=== PATIENT | female | born 1950 | race Caucasian/White ===

== ENCOUNTER 2016-10-16 17:40 | Observation (INO) | payer MEDICAID ==
[~2016-10-16] VITALS: Ht 134.6 cm; Wt 52.0 kg
[~2016-10-16 17:40] MED LIST: ASPI81TA82 PO; ATOR20TA PO; CHOL50006 PO; FENO1TAB76 PO; FOSA70TA PO; GABA800T PO; GLUC10TA3 PO; HUMU70IN; METF850T PO; ONDA1TAB16 PO; PERC5TAB12 PO; PRIN5TAB PO
[2016-10-16 17:42] VITALS: BP 148/89; PULSE 112; RESP 21; TEMP 98.1; O2SAT 97
[2016-10-16] MEDS ORDERED: ONDANSETRON HCL 4 MG/2 ML VIAL IVP ONE (18:15)
[2016-10-16] MEDS ORDERED: HYDROmorphone HCL PF 1 MG/ML VIAL IVS ONE (18:15)
[2016-10-16] MEDS ORDERED: SODIUM CHLORIDE 0.9% FLUSH 10 ML FLUSH IV FLUSH PRN (18:15)
[2016-10-16] MEDS ORDERED: SODIUM CHLORID 0.9% 500 ML INJ 500 ML IV ONE (18:15)
[2016-10-16 18:16] VITALS: BP 165/81; PULSE 96; RESP 18; O2SAT 97
--- NOTE | 2016-10-16 18:18 | PD ---
HPI Chief Complaint: Abdominal Pain Time Seen by Provider: 18:14 Travel History International Travel<30 days: No Contact w/Intl Traveler<30days: No Traveled to known affect area: No History of Present Illness HPI 65-year-old female patient with history of pancreatitis, presents to the ER today with 2 days history of left upper quadrant abdominal pains which she currently rates it a 10 out of 10 with nausea and vomiting. She denies any fevers, diarrhea, or any other symptoms. She states it feels like her previous episode of pancreatitis. She states it radiates to the back. Modifying Factors: None Associated Signs & Symptoms: Left upper quadrant abdominal pain with nausea and vomiting Risk Factors: Pancreatitis, status post cholecystectomy PFS Past Medical History Cardiovascular Problems: Yes High Cholesterol: Yes Diabetes: Yes Gastrointestinal Disorders: Yes (GASTRITIS / PANCREATITIS) Past Surgical History Appendectomy: Yes Cholecystectomy: Yes Hysterectomy: Yes Social History Alcohol Use: No Tobacco Use: No Substance Use: No Allergies-Medications (Allergen,Severity, Reaction): Coded Allergies: ibuprofen (Unverified Allergy, Unknown, 10/16/16) Reported Meds & Prescriptions Reported Meds & Active Scripts Active Reported Aspirin Adult Low Strength (Aspirin) 81 Mg Tabdr 81 Mg PO DAILY Omeprazole 20 Mg Tab 20 Mg PO DAILY [place]-3 ([place]-3 Fatty Acids) 1,000 Mg Capsule 1,000 Mg PO QID Glipizide 10 Mg Tab 10 Mg PO DAILY Take 30 minutes before a meal Invokamet (Canagliflozin-Metformin) 50-1,000 Mg Tab 1 Tab PO BID Take with meals. Avoid ethanol. Gemfibrozil 600 Mg Tab 600 Mg PO BID Take 30 minutes prior to breakfast and dinner. Lipitor (Atorvastatin Calcium) 80 Mg Tab 80 Mg PO HS Fosamax (Alendronate Sodium) 70 Mg Tab 70 Mg PO Q7D Ergocalciferol 50,000 Unit Cap 50,000 Units PO Q7D Gabapentin 800 Mg Tab 800 Mg PO BID Humalog Mix 75-25 Kwikpen Pen Inj (Insulin Lispro Protamine-Lispro 75-25 Inj) 300 unit/3 ML Pen 44 Units SQ BEFORE DINNER Humalog Mix 75-25 Kwikpen Pen Inj (Insulin Lispro Protamine-Lispro 75-25 Inj) 300 unit/3 ML Pen 25 Units SQ BEFORE BREAKFAST Meclizine (Meclizine HCl) 25 Mg Tab 25 Mg PO BID Amlodipine (Amlodipine Besylate) 10 Mg Tab 10 Mg PO DAILY Review of Systems Except as stated in HPI: all other systems reviewed are Neg Physical Exam Narrative GENERAL: Well-developed elderly female patient currently in mild distress. Awake and oriented 3. SKIN: Focused skin assessment warm/dry. HEAD: Atraumatic. Normocephalic. EYES: Pupils equal and round. No scleral icterus. No injection or drainage. ENT: No nasal bleeding or discharge. Mucous membranes pink and moist. NECK: Trachea midline. No JVD. CARDIOVASCULAR: Regular rate and rhythm. No murmur appreciated. RESPIRATORY: No accessory muscle use. Clear to auscultation. Breath sounds equal bilaterally. GASTROINTESTINAL: Abdomen soft, upper abdominal tenderness on palpation without guarding or rebound, nondistended. Hepatic and splenic margins not palpable. MUSCULOSKELETAL: No obvious deformities. No clubbing. No cyanosis. No edema. NEUROLOGICAL: Awake and alert. No obvious cranial nerve deficits. Motor grossly within normal limits. Normal speech. PSYCHIATRIC: Appropriate mood and affect; insight and judgment normal. Data Data Last Documented VS Vital Signs Date Time Temp Pulse Resp B/P (MAP) Pulse Ox O2 Delivery O2 Flow Rate FiO2 10/16/16 18:16 96 18 165/81 (109) 97 Room Air 10/16/16 17:42 98.1 Orders Orders Complete Blood Count With Diff (10/16/16 18:14) Comprehensive Metabolic Panel (10/16/16 18:14) Lipase (10/16/16 18:14) Ct Abd/Pel W Iv Contrast(Rout) (10/16/16 18:14) Iv Access Insert/Monitor (10/16/16 18:14) Ecg Monitoring (10/16/16 18:14) Oximetry (10/16/16 18:14) Ondansetron Inj (Zofran Inj) (10/16/16 18:15) Sodium Chloride 0.9% Flush (Ns Flush) (10/16/16 18:15) Electrocardiogram (10/16/16 18:14) Hydromorphone Pf Inj (Dilaudid Pf Inj) (10/16/16 18:15) Sodium Chlorid 0.9% 500 Ml Inj (Ns 500 M (10/16/16 18:15) Labs Laboratory Tests Test 10/16/16 18:20 [facility] Medical Decision Making Medical Screen Exam Complete: Yes Emergency Medical Condition: Yes Medical Record Reviewed: Yes Differential Diagnosis Upper abdominal pain, nausea, vomiting: gastritis versus pancreatitis versus gastroenteritis Narrative Course IV fluids, Zofran was given in the ER. Lab work and CAT scan was initiated. Physician Communication Physician Communication Case is signed out at [address] Peacock, please see Dr. Peacock for disposition. Awaiting lab work and CAT scan. Diagnosis Primary Impression: Abdominal pain Condition: Stable Nate Worrell MD Oct 16, 2016 18:18
[2016-10-16] MEDS ORDERED: GLIP10TA6 PO (18:53)
[2016-10-16] MEDS ORDERED: ERGO1CAP30 PO (18:53)
[2016-10-16] MEDS ORDERED: CANA1TAB2 PO (18:53)
[2016-10-16] MEDS ORDERED: HUMA75IN SQ ×2 (18:53)
[2016-10-16] MEDS ORDERED: MECL-62 PO (18:53)
[2016-10-16] MEDS ORDERED: ASPI1TAB91 PO (18:53)
[2016-10-16] MEDS ORDERED: GEMF600T PO (18:53)
[2016-10-16] MEDS ORDERED: AMLO10TA2 PO (18:53)
[2016-10-16] MEDS ORDERED: OMEP20TA PO (18:53)
[2016-10-16] MEDS ORDERED: GABA800T PO (18:53)
[2016-10-16] MEDS ORDERED: FOSA70TA PO (18:53)
[2016-10-16] MEDS ORDERED: OMEG10004 PO (18:53)
[2016-10-16] MEDS ORDERED: LIPI80TA PO (18:53)
[2016-10-16 19:09] LABS: AUTOMATED NEUTROPHIL # 8.1 TH/MM3 (1.8-7.7); BASOPHIL # 0.1 TH/MM3 (0-0.2); EOSINOPHIL % 0.1 % (0.0-4.0); LYMPH % 4.9 % (9.0-44.0); LYMPHOCYTE # 0.5 TH/MM3 (1.0-4.8); MEAN CELL VOLUME 80.4 FL (80.0-100.0); MONO % 8.2 % (0.0-8.0); NEUT % 85.8 % (16.0-70.0); PLATELET COUNT 197 TH/MM3 (150-450); RED CELL DISTRIBUTION WIDTH 15.4 % (11.6-17.2); WHITE BLOOD COUNT 9.4 TH/MM3 (4.0-11.0)
--- NOTE | 2016-10-16 19:20 | PD ---
Physical Exam Narrative General: The patient is a well-developed well-nourished female in no acute distress. Head and Neck exam: Head is normocephalic atraumatic. Eyes: EOMI, pupils are equal round and reactive to light. Nose: Midline septum with pink mucous membranes Mouth: Dentition unremarkable. Moist mucus membranes. Posterior oropharynx is not erythematous. No tonsillar hypertrophy. Uvula midline. Airway patent. Neck: No palpable lymphadenopathy. No nuchal rigidity. No thyromegaly. Cardiovascular: Regular rate and rhythm without murmurs, gallops, or rubs. Lungs: Clear to auscultation bilaterally. No wheezes, rhonchi, or rales. Abdomen: Soft, with midepigastric abdominal tenderness on palpation. No other tenderness on palpation of the other quadrants of the abdomen. No guarding, rebound, or rigidity. Negative Franco's sign. No tenderness on palpation of McBurney's point. Extremities: No clubbing, cyanosis, or edema. 2+ pulses in all 4 extremities. No calf tenderness on palpation. Back: No spinous process tenderness to palpation. No costovertebral angle tenderness to palpation. Neurologic Exam: Cranial nerves 2-12 were intact on exam. Strength is 5/5 in all 4 extremities. No sensory deficits noted. No dysdiadochokinesis. Good finger to nose and Heel to peñaloza bilaterally. Skin Exam: No rash noted. Intact skin that is warm and dry. Data Data Last Documented VS Vital Signs Date Time Temp Pulse Resp B/P (MAP) Pulse Ox O2 Delivery O2 Flow Rate FiO2 10/16/16 20:36 95 16 148/74 (98) 96 Nasal Cannula 2.00 10/16/16 17:42 98.1 Orders Orders Complete Blood Count With Diff (10/16/16 18:14) Comprehensive Metabolic Panel (10/16/16 18:14) Lipase (10/16/16 18:14) Ct Abd/Pel W Iv Contrast(Rout) (10/16/16 18:14) Iv Access Insert/Monitor (10/16/16 18:14) Ecg Monitoring (10/16/16 18:14) Oximetry (10/16/16 18:14) Ondansetron Inj (Zofran Inj) (10/16/16 18:15) Sodium Chloride 0.9% Flush (Ns Flush) (10/16/16 18:15) Electrocardiogram (10/16/16 18:14) Hydromorphone Pf Inj (Dilaudid Pf Inj) (10/16/16 18:15) Sodium Chlorid 0.9% 500 Ml Inj (Ns 500 M (10/16/16 18:15) Urinalysis - C+S If Indicated (10/16/16 20:46) Iohexol 350 Inj (Omnipaque 350 Inj) (10/16/16 21:11) Beta Hydroxybutyrate (Acetone) (10/16/16 21:49) Lactic Acid Sepsis Protocol (10/16/16 21:49) Sodium Chlor 0.9% 1000 Ml Inj (Ns 1000 M (10/16/16 22:00) Admit Order (Ed Use Only) (10/16/16 22:06) Labs Laboratory Tests Test 10/16/16 18:20 10/16/16 22:01 10/16/16 22:05 White Blood Count 9.4 TH/MM3 Red Blood Count 4.50 MIL/MM3 Hemoglobin 12.4 GM/DL Hematocrit 37.0 % Mean Corpuscular Volume 80.4 FL Mean Corpuscular Hemoglobin 27.2 PG Mean Corpuscular Hemoglobin Concent 33.5 % Red Cell Distribution Width 15.4 % Platelet Count 197 TH/MM3 Mean Platelet Volume 8.6 FL Neutrophils (%) (Auto) 85.8 % Lymphocytes (%) (Auto) 4.9 % Monocytes (%) (Auto) 8.2 % Eosinophils (%) (Auto) 0.1 % Basophils (%) (Auto) 1.0 % Neutrophils # (Auto) 8.1 TH/MM3 Lymphocytes # (Auto) 0.5 TH/MM3 Monocytes # (Auto) 0.8 TH/MM3 Eosinophils # (Auto) 0.0 TH/MM3 Basophils # (Auto) 0.1 TH/MM3 CBC Comment DIFF FINAL Differential Comment Hematology Comments Blood Urea Nitrogen 8 MG/DL 9 MG/DL Creatinine 0.60 MG/DL 0.54 MG/DL Random Glucose 263 MG/DL 222 MG/DL Total Protein 7.6 GM/DL Albumin 3.3 GM/DL Calcium Level 7.5 MG/DL 8.1 MG/DL Alkaline Phosphatase 90 U/L Aspartate Amino Transf (AST/SGOT) 58 U/L Alanine Aminotransferase (ALT/SGPT) 52 U/L Total Bilirubin 1.2 MG/DL Sodium Level 131 MEQ/L 134 MEQ/L Potassium Level 4.3 MEQ/L 4.4 MEQ/L Chloride Level 96 MEQ/L 100 MEQ/L Carbon Dioxide Level 11.0 MEQ/L 13.8 MEQ/L Anion Gap 24 MEQ/L 20 MEQ/L Estimat Glomerular Filtration Rate 101 ML/MIN 114 ML/MIN Lipase 170 U/L Lactic Acid Level LESS THAN 0.1 mmol/L B-Hydroxybutyrate 0.56 MMOL/L Urine Color LIGHT-YELLOW Urine Turbidity CLEAR Urine pH 6.5 Urine Specific [place] GREATER THAN 1.050 Urine Protein TRACE mg/dL Urine Glucose (UA) 1000 mg/dL Urine Ketones 80 mg/dL Urine Occult Blood NEG Urine Nitrite NEG Urine Bilirubin NEG Urine Urobilinogen LESS THAN 2.0 MG/DL Urine Leukocyte Esterase NEG Urine RBC 1 /hpf Urine WBC 3 /hpf Urine Squamous Epithelial Cells 1 /hpf Urine Mucus FEW /lpf Microscopic Urinalysis Comment CULT NOT INDICATED MDM Medical Record Reviewed: Yes Supervised Visit with LEO: No Interpretation(s) Last Impressions Abdomen/Pelvis CT 10/16/161813 Signed Impressions: Service Date/Time: Sunday, October 16, 2016 20:43 - CONCLUSION: 1. Mild fat stranding around the pancreas most characteristic of mild pancreatitis. Previous cholecystectomy without ductal dilatation. 2. Numerous nonobstructing renal calculi. 3. Mild fatty liver. Leodan Lee MD Narrative Course During the course of the patients emergency department visit, the patients history, examination, and differential diagnosis were reviewed with the patient. The patient had IV access obtained and blood work sent for analysis. The patient was placed on a cardiac tech with oximetry and blood pressure monitoring. An ECG was done on arrival. The patient's ECG shows a sinus rhythm with a heart rate of 95, marked left axis deviation, right bundle branch block is noted. No acute ST segment elevation. T waves are inverted in V1, V2. The patient was initially provided hydromorphone for pain, Zofran for nausea, normal saline IV fluids. The patients laboratory studies were reviewed and remarkable for A CBC that shows a white count of 9.4, hemoglobin 12.4, platelets 197 with 85.8 neutrophils , lymphocytes 4.9, monocytes 8.2. CMP is remarkable for a sodium of 131, chloride 96, CO2 11, anion gap 24, BUN 8, creatinine 0.60, glucose 263, calcium 7.5, total bilirubin 1.2 AST 58., Albumin 3.3, lipase 170 as the patient was noted to be acidotic with an anion gap and ABG was ordered. The patient's pH is 7.35 on VBG, bicarbonate 25.6. Urinalysis shows 1000 glucose, ketones 80, beta hydroxybutyrate 0.56 Radiology studies were reviewed and remarkable for a CT scan of the abdomen and pelvis that shows mild fat stranding around the pancreas most consistent with a mild pancreatitis. The patients results were discussed with the patient, including the plan of care. I explained that further testing and/ or monitoring is indicated based on the patients history, examination, and/ or laboratory findings. Therefore, I recommended admission for additional evaluation. The patient expressed understanding and was agreeable with this plan. The patient was admitted to the hospital in stable condition and [facility] Physician Communication Physician Communication The patient's case was discussed with Dr. Bates who did agree to admit the patient for further evaluation and treatment at this time. Diagnosis Primary Impression: Abdominal pain Qualified Codes: R10.13 - Epigastric pain Additional Impressions: Pancreatitis Qualified Codes: K85.90 - Acute pancreatitis without necrosis or infection, unspecified Acidosis, metabolic Admitting Information Admitting Physician Requests: Admit Gisselle Peacock MD Oct 16, 2016 19:20
[2016-10-16 19:38] LABS: HEMO FLAGS DIFF FINAL; MEAN CORPUSCULAR HEMOGLOBIN 27.2 PG (27.0-34.0); MEAN CORPUSCULAR HGB CONC 33.5 % (32.0-36.0)
[2016-10-16 19:56] LABS: CHLORIDE 96 MEQ/L (98-107); GLOMERULAR FILTRATION RATE 101 ML/MIN (>89); SODIUM (NA) 131 MEQ/L (136-145)
[2016-10-16 19:57] LABS: POTASSIUM 4.3 MEQ/L (3.5-5.1)
[2016-10-16 19:59] LABS: ALKALINE PHOSPHATASE 90 U/L (45-117); TOTAL BILIRUBIN ADULT 1.2 MG/DL (0.2-1.0)
[2016-10-16 20:36] VITALS: BP 148/74; PULSE 95; RESP 16; O2SAT 96
[2016-10-16 20:41] LABS: ANION GAP 24 MEQ/L (5-15)
[2016-10-16 20:42] LABS: BLOOD UREA NITROGEN 8 MG/DL (7-18)
[2016-10-16 20:51] LABS: ALT (GPT) 52 U/L (10-53); AST (GOT) 58 U/L (15-37)
[2016-10-16] MEDS ORDERED: IOHEXOL 350 MG/ML 10 ML VIAL (for RAD DIAG) IVCONTRAST ONE (21:11)
--- NOTE | 2016-10-16 21:34 | RADRPT ---
EXAM DATE/TIME: 10/16/2016 20:43 [facility] COMPARISON: CT ABDOMEN & PELVIS W CONTRAST, July 10, 2015, 9:12. INDICATIONS : Bilateral upper quadrant pain with nausea and vomiting. IV CONTRAST: 80 cc Omnipaque 350 (iohexol) IV ORAL CONTRAST: No oral contrast ingested. RADIATION DOSE: 9.96 CTDIvol (mGy) MEDICAL HISTORY : Hypertension. Diabetes. SURGICAL HISTORY : Cholecystectomy. Hysterectomy.Appendectomy. ENCOUNTER: Initial ACUITY: 1 day PAIN SCALE: 10/10 LOCATION: Bilateral upper quadrant TECHNIQUE: Volumetric scanning of the abdomen and pelvis was performed. Using automated exposure control and ad justment of the mA and/or kV according to patient size, radiation dose was kept as low as reasonably achievable to obtain optimal diagnostic quality images. DICOM format image data is available electro nically for review and comparison. FINDINGS: Lung bases demonstrate minimal dependent atelectasis. No acute findings in the liver, spleen, adrenal s. Mild stranding of fat around the pancreas. Numerous tiny bilateral renal calculi similar in appear ance to June 2015. No hydronephrosis or evidence for obstructive uropathy. Previous cholecystectomy. No bowel obstruction. No free air or free fluid. Mild constipation. Bladder is mildly distended. CONCLUSION: 1. Mild fat stranding around the pancreas most characteristic of mild pancreatitis. Previous cholecys tectomy without ductal dilatation. 2. Numerous nonobstructing renal calculi. 3. Mild fatty liver. Leodan Lee MD on October 16, 2016 at 21:26 Board Certified Radiologist. This report was verified electronically.
[2016-10-16] MEDS ORDERED: SODIUM CHLOR 0.9% 1000 ML INJ 1,000 ML IV ONE (22:00)
[2016-10-16 22:09] VITALS: BP 160/79; PULSE 99; RESP 18; O2SAT 99
[2016-10-16 22:10] VITALS: TEMP 99
[2016-10-16] MEDS ORDERED: NALOXONE HCL 0.4 MG/ML AMP IV PRN (22:30)
[2016-10-16 22:45] LABS: BLOOD, URINE NEG (NEG); GLUCOSE,URINE 1000 mg/dL (NEG); KETONE, URINE 80 mg/dL (NEG); MUCUS URINE FEW /lpf (OCC); NITRITE,URINE NEG (NEG); PH, URINE 6.5 (5.0-8.5); SQUAMOUS EPITHELIAL CELL URINE 1 /hpf (0-5); URINE COLOR LIGHT-YELLOW (YELLW/STRAW)
[2016-10-16 22:46] LABS: COMMENT (UR) CULT NOT INDICATED; CULTURE IF INDICATED CULT NOT INDICATED
[2016-10-16 22:47] LABS: BLOOD GAS VENOUS BASE EXCESS 0.8 mmol/L (-2-2); BLOOD GAS VENOUS HCO3 26 mmol/L (22-26); BLOOD GAS VENOUS O2 CONTENT 9.9 Vol % (9.0-17.0); BLOOD GAS VENOUS O2 HGB SAT 59 % (70-76); BLOOD GAS VENOUS PCO2 47 mmHg (44-48); BLOOD GAS VENOUS PO2 34 mmHg (35-40); BLOOD GAS VENOUS pH 7.36 (7.360-7.400); CRITICAL VALUE NO; DRAW SITE IV; LITER FLOW 2 L/M; OXYGEN DEVICE NASAL CANNULA; STAT YES; TEMP CORR TO 98.6
--- NOTE | 2016-10-16 23:28 | HHI.HP ---
[facility] Unknown Admission Diagnosis Dehydration with acidosis, pancreatitis Diagnoses: (1) Pancreatitis Chief Complaint: Severe abdominal pain and back pain Travel History International Travel<30 Days: No Contact w/Intl Traveler <30 Da: No Traveled to Known Affected Are: No History of Present Illness Written by Berta Flores, acting as scribe for Dr. Bates on 10/16/16 at 23:25. The patient reports severe abdominal pain and her back accompanied by nausea with 3 episodes of vomiting. Denies black or red vomiting. Denies diarrhea. Denies diaphoresis. Denies fever, hematuria, or dysuria. Pain is in the left upper quadrant but patient is also complaining of suprapubic pain. Patient reports a prior history of pancreatitis 3. States that she was in ICU for all of these. This is her fourth time. She states that she has extremely high triglycerides. In the range of 10,000. Denies any history of gallstones or alcoholism. Denies fever. Review of Systems Except as stated in HPI: all other systems reviewed are Neg Past Family Social History Past Medical History Pancreatitis (3 prior episodes) - required ICU admission Hypertriglyceridemia Hypertension Diabetes Mellitus, type 2 Arthritis ?CAD s/p stents? Liver inflammation Vertigo Denies CHF, atrial fibrillation, COPD, asthma, kidney problems, DVT, PE, CVA, seizures, thyroid problems, or cancers . Past Surgical History Cholecystectomy Appendectomy Hysterectomy Angiogram . Reported Medications Reported Meds & Active Scripts Active Reported Aspirin Adult Low Strength (Aspirin) 81 Mg Tabdr 81 Mg PO DAILY Omeprazole 20 Mg Tab 20 Mg PO DAILY Clayton-3 (Clayton-3 Fatty Acids) 1,000 Mg Capsule 1,000 Mg PO QID Glipizide 10 Mg Tab 10 Mg PO DAILY Take 30 minutes before a meal Invokamet (Canagliflozin-Metformin) 50-1,000 Mg Tab 1 Tab PO BID Take with meals. Avoid ethanol. Gemfibrozil 600 Mg Tab 600 Mg PO BID Take 30 minutes prior to breakfast and dinner. Lipitor (Atorvastatin Calcium) 80 Mg Tab 80 Mg PO HS Fosamax (Alendronate Sodium) 70 Mg Tab 70 Mg PO Q7D Ergocalciferol 50,000 Unit Cap 50,000 Units PO Q7D Gabapentin 800 Mg Tab 800 Mg PO BID Humalog Mix 75-25 Kwikpen Pen Inj (Insulin Lispro Protamine-Lispro 75-25 Inj) 300 unit/3 ML Pen 44 Units SQ BEFORE DINNER Humalog Mix 75-25 Kwikpen Pen Inj (Insulin Lispro Protamine-Lispro 75-25 Inj) 300 unit/3 ML Pen 25 Units SQ BEFORE BREAKFAST Meclizine (Meclizine HCl) 25 Mg Tab 25 Mg PO BID Amlodipine (Amlodipine Besylate) 10 Mg Tab 10 Mg PO DAILY . Allergies: Coded Allergies: ibuprofen (Unverified Allergy, Unknown, 10/16/16) Active Ordered Medications Current Medications Ondansetron HCl (Zofran Inj) 4 mg ONCE ONCE IVP Last administered on 10/16/16 18:46; Start 10/16/16 at 18:15; Stop 10/16/16 at 18:16; Status DC Sodium Chloride (NS Flush) 2 ml UNSCH PRN IV FLUSH FLUSH AFTER USING IV ACCESS ; Start 10/16/16 at 18:15; Stop 10/16/16 at 22:19; Status DC Hydromorphone HCl (Dilaudid Pf Inj) 1 mg ONCE ONCE IVS Last administered on 18:47; Start 10/16/16 at 18:15; Stop 10/16/16 at 18:16; Status DC Sodium Chloride 500 ml @ 500 mls/hr BOLUS ONCE IV Last administered on 18:40; Start 10/16/16 at 18:15; Stop 10/16/16 at 19:14; Status DC Iohexol (Omnipaque 350 Inj) 80 ml STK-MED ONCE IVCONTRAST Last administered on 10/16/16 21:11; Start 10/16/16 at 21:11; Stop 10/16/16 at 21:12; Status DC Sodium Chloride 1,000 ml @ 1,000 mls/hr Q1H ONCE IV Last administered on 22:07; Start 10/16/16 at 22:00; Stop 10/16/16 at 22:59; Status DC Sodium Chloride 1,000 ml @ 100 mls/hr Q10H IV ; Start 10/16/16 at 22:16 Sodium Chloride (NS Flush) 2 ml UNSCH PRN IV FLUSH FLUSH AFTER USING IV ACCESS ; Start 10/16/16 at 22:30 Sodium Chloride (NS Flush) 2 ml BID IV FLUSH ; Start 10/17/16 at 09:00 Naloxone HCl (Narcan Inj) 0.4 mg UNSCH PRN IV SEE LABEL COMMENTS; Start at 22:30 . Family History Sister with pancreatitis, DM Daughter with pancreatitis, DM Father with DM . Social History Tobacco: smoked for 30 years, quit smoking 12 years ago Alcohol: denies Illicit Drugs: denies . Physical Exam Vital Signs Vital Signs Date Time Temp Pulse Resp B/P (MAP) Pulse Ox O2 Delivery O2 Flow Rate FiO2 10/16/16 22:10 99.0 10/16/16 22:09 99 18 160/79 (106) 99 Nasal Cannula 2.00 10/16/16 20:36 95 16 148/74 (98) 96 Nasal Cannula 2.00 10/16/16 18:16 96 18 165/81 (109) 97 Room Air 10/16/16 17:42 98.1 112 21 148/89 (108) 97 Physical Exam GENERAL: This is a female patient who appears to be painful and nauseated during visit. SKIN: No rashes, ecchymoses or lesions. Cool and dry. HEAD: Atraumatic. Normocephalic. EYES: No scleral icterus. No injection or drainage. ENT: Nose without bleeding, purulent drainage. NECK: Trachea midline. No JVD. CARDIOVASCULAR: Regular rate and rhythm without murmurs, gallops, or rubs. RESPIRATORY: Clear to auscultation. Breath sounds equal bilaterally. No wheezes , rales, or rhonchi. GASTROINTESTINAL: Abdomen soft, upper quadrants tender to palpation, nondistended. No guarding. GENITOURINARY: Suprapubic tenderness MUSCULOSKELETAL: Extremities without clubbing, cyanosis, or edema. No calf tenderness. NEUROLOGICAL: Awake and alert. Motor and sensory grossly within normal limits. Normal speech. . Laboratory Laboratory Tests Test 10/16/16 18:20 10/16/16 22:01 10/16/16 22:05 10/16/16 22:35 White Blood Count 9.4 Red Blood Count 4.50 Hemoglobin 12.4 Hematocrit 37.0 Mean Corpuscular Volume 80.4 Mean Corpuscular Hemoglobin 27.2 Mean Corpuscular Hemoglobin Concent 33.5 Red Cell Distribution Width 15.4 Platelet Count 197 Mean Platelet Volume 8.6 Neutrophils (%) (Auto) 85.8 Lymphocytes (%) (Auto) 4.9 Monocytes (%) (Auto) 8.2 Eosinophils (%) (Auto) 0.1 Basophils (%) (Auto) 1.0 Neutrophils # (Auto) 8.1 Lymphocytes # (Auto) 0.5 Monocytes # (Auto) 0.8 Eosinophils # (Auto) 0.0 Basophils # (Auto) 0.1 CBC Comment DIFF FINAL Differential Comment Hematology Comments Blood Urea Nitrogen 8 Creatinine 0.60 Random Glucose 263 Total Protein 7.6 Albumin 3.3 Calcium Level 7.5 Alkaline Phosphatase 90 Aspartate Amino Transf (AST/SGOT) 58 Alanine Aminotransferase (ALT/SGPT) 52 Total Bilirubin 1.2 Sodium Level 131 Potassium Level 4.3 Chloride Level 96 Carbon Dioxide Level 11.0 Anion Gap 24 Estimat Glomerular Filtration Rate 101 Lipase 170 B-Hydroxybutyrate 0.56 Urine Color LIGHT-YELLOW Urine Turbidity CLEAR Urine pH 6.5 Urine Specific [place] GREATER THAN 1.050 Urine Protein TRACE Urine Glucose (UA) 1000 Urine Ketones 80 Urine Occult Blood NEG Urine Nitrite NEG Urine Bilirubin NEG Urine Urobilinogen LESS THAN 2.0 Urine Leukocyte Esterase NEG Urine RBC 1 Urine WBC 3 Urine Squamous Epithelial Cells 1 Urine Mucus FEW Microscopic Urinalysis Comment CULT NOT INDICATED Blood Gas Puncture Site IV Blood Gas Patient Temperature 98.6 Venous Blood pH 7.36 Venous Blood Partial Pressure CO2 47 Venous Blood Partial Pressure O2 34 Venous Blood HCO3 26 Venous Blood Oxygen Saturation 59 Venous Blood Oxygen Content 9.9 Venous Blood Base Excess 0.8 Oxygen Delivery Device NASAL CANNULA Blood Gas Liter Flow 2 Result Diagram: 10/16/16181910/16/161819 Imaging Last Impressions Abdomen/Pelvis CT 10/16/161813 Signed Impressions: Service Date/Time: Sunday, October 16, 2016 20:43 - CONCLUSION: 1. Mild fat stranding around the pancreas most characteristic of mild pancreatitis. Previous cholecystectomy without ductal dilatation. 2. Numerous nonobstructing renal calculi. 3. Mild fatty liver. Leodan Lee MD . Caprini VTE Risk Assessment Caprini VTE Risk Assessment: Mod/High Risk (score >= 2) Caprini Risk Assessment Model Point Value = 1 Point Value = 2 Point Value = 3 Point Value = 5 Age 41-60 Minor surgery BMI > 25 kg/m2 Swollen legs Varicose veins or History of unexplained or recurrent spontaneous Oral contraceptives or hormone replacement Sepsis (< 1 month) Serious lung disease, including pneumonia (< 1 month) Abnormal pulmonary function Acute myocardial infarction Congestive heart failure (< 1 month) History of inflammatory bowel disease Medical patient at bed rest Age 61-74 Arthroscopic surgery Major open surgery (> 45 min) Laparoscopic surgery (> 45 min) Malignancy Confined to bed (> 72 hours) Immobilizing plaster cast Central venous access Age >= 75 History of VTE Family history of VTE Factor V Leiden Prothrombin [id number] Lupus anticoagulant Anticardiolipin antibodies Elevated serum homocysteine Heparin-induced thrombocytopenia Other congenital or acquired thrombophilia Stroke (< 1 month) Elective arthroplasty Hip, pelvis, or leg fracture Acute spinal cord injury (< 1 month) Prophylaxis Regimen Total Risk Factor Score Risk Level Prophylaxis Regimen 0-1 Low Early ambulation 2 Moderate Order ONE of the following: *Sequential Compression Device (SCD) *Heparin 5000 units SQ BID 3-4 Higher Order ONE of the following medications: *Heparin 5000 units SQ TID *Enoxaparin/Lovenox 40 mg SQ daily (WT < 150 kg, CrCl > 30 mL/min) *Enoxaparin/Lovenox 30 mg SQ daily (WT < 150 kg, CrCl > 10-29 mL/min) *Enoxaparin/Lovenox 30 mg SQ BID (WT < 150 kg, CrCl > 30 mL/min) AND/OR *Sequential Compression Device (SCD) 5 or more Highest Order ONE of the following medications: *Heparin 5000 units SQ TID (Preferred with Epidurals) *Enoxaparin/Lovenox 40 mg SQ daily (WT < 150 kg, CrCl > 30 mL/min) *Enoxaparin/Lovenox 30 mg SQ daily (WT < 150 kg, CrCl > 10-29 mL/min) *Enoxaparin/Lovenox 30 mg SQ BID (WT < 150 kg, CrCl > 30 mL/min) AND *Sequential Compression Device (SCD) Assessment and Plan Problem List: (1) Pancreatitis ICD Code: K85.90 - Acute pancreatitis without necrosis or infection, unspecified (2) Abdominal pain ICD Code: R10.9 - Unspecified abdominal pain Status: Acute (3) Acidosis, metabolic ICD Code: E87.2 - Acidosis (4) Dehydration ICD Code: E86.0 - Dehydration (5) Type 2 diabetes mellitus ICD Code: E11.9 - Type 2 diabetes mellitus without complications Status: Chronic Assessment and Plan 65 y/o female with a history of pancreatitis presented to ED with severe abdominal and back pain. Abdominal Pain Pancreatitis - Abdomen/Pelvis CT with mild fat stranding around the pancreas most c/w pancreatitis. - Zofran 4 mg IV q6h PRN n/v - Morphine 2 mg IV q3h PRN pain - NS at 100 cc/hr Type 2 Diabetes Mellitus - Accu-Cheks before meals and at bedtime with low-dose NovoLog sliding scale coverage - Hypoglycemia protocol - Monitor trends and blood glucose readings and adjust treatments as indicated Dehydration with acidosis - improving with rehydration on repeat labs - repeat in a.m. and follow results DVT prophylaxis - Lovenox 40 mg subq q24h . This note was transcribed by scribe [Berta Flores]. I, Dr. Kellee Bates personally performed the history, physical exam, and medical decision making; and confirmed the accuracy of the information in the transcribed note. Authenticated by Dr. Kellee Bates on 10/16/16 at 23:25. Discussed Condition With ER physician and patient . Berta Flores Oct 16, 2016 23:27 Kellee Bates MD Oct 17, 2016 08:12
[2016-10-17] VITALS (11 sets, daily range): BP systolic 109–146; BP diastolic 65–75; PULSE 93–103; RESP 18–20; TEMP 98.2–99.2; O2SAT 94–97
[2016-10-17] MEDS ORDERED: ONDANSETRON HCL 4 MG/2 ML VIAL IV PUSH PRN (00:30)
[2016-10-17] MEDS: MORPHINE SULFATE 4 MG/ML INJ IV PUSH PRN ×3 (00:42→10:13)
[2016-10-17] MEDS: SODIUM CHLORIDE 0.9% FLUSH 10 ML FLUSH IV FLUSH PRN ×2 (00:42→10:14)
[2016-10-17] MEDS: SODIUM CHLOR 0.9% 1000 ML INJ 1,000 ML IV SCH ×2 (00:45→01:46)
[2016-10-17 01:12] LABS: BICARBONATE 13.8 MEQ/L (21.0-32.0); POTASSIUM 4.4 MEQ/L (3.5-5.1)
[2016-10-17] MEDS ORDERED: DEXTROSE 50% IN WATER 50 ML VIAL(D50) IV PRN (02:00)
[2016-10-17] MEDS ORDERED: GLUCAGON 1 MG/ML VIAL OTHER PRN (02:00)
[2016-10-17] MEDS: SODIUM BICARBONATE 8.4% INJ 50 MEQ in DEXTROSE 5% IN WATE 1000ML INJ 1,000 ML IV SCH ×4 (03:15→16:41)
[2016-10-17] MEDS: ENOXAPARIN SODIUM 40 MG/0.4 ML SYRINGE SQ SCH (05:17)
[2016-10-17] MEDS: INSULIN ASPART SUPPLEMENTAL SCALE SQ SCH ×4 (06:17→21:00)
[2016-10-17] MEDS: SODIUM CHLORIDE 0.9% FLUSH 10 ML FLUSH IV FLUSH SCH ×2 (09:00→20:36)
[2016-10-17] MEDS: MECLIZINE HCL 25 MG TAB PO SCH ×2 (09:55→21:02)
[2016-10-17] MEDS: GEMFIBROZIL 600 MG TAB PO SCH ×2 (09:55→21:02)
[2016-10-17] MEDS: GABAPENTIN 400 MG CAP PO SCH ×2 (09:55→21:03)
[2016-10-17] MEDS: PANTOPRAZOLE SOD 20 MG DELAYED RELEASE TAB PO SCH (09:55)
--- NOTE | 2016-10-17 13:39 | HHI.PR ---
Subjective Remarks Follow up for abdominal pain, pancreatitis. The patient reports feeling better today. Still has some epigastric discomfort, but denies any further nausea/ vomiting. Denies any fevers/chills. She had a normal formed BM yesterday. She has been tolerating clear liquid diet. She has no other medical complaints at this time. Objective Vitals Vital Signs Date Time Temp Pulse Resp B/P (MAP) Pulse Ox O2 Delivery O2 Flow Rate FiO2 10/17/16 12:05 98 10/17/16 11:47 98.7 98 18 122/67 (85) 96 10/17/16 08:05 101 10/17/16 07:19 98.3 103 18 133/74 (93) 97 10/17/16 04:26 98.2 100 20 141/75 (97) 97 10/17/16 01:28 98 10/17/16 01:03 16 10/17/16 00:41 99.0 101 20 146/70 (95) 94 10/17/16 00:32 10/16/16 22:10 99.0 10/16/16 22:09 99 18 160/79 (106) 99 Nasal Cannula 2.00 10/16/16 20:36 95 16 148/74 (98) 96 Nasal Cannula 2.00 10/16/16 18:16 96 18 165/81 (109) 97 Room Air 10/16/16 17:42 98.1 112 21 148/89 (108) 97 I/O 10/16/16 10/16/16 10/16/16 10/17/16 10/17/16 10/17/16 07:00 15:00 23:00 07:00 15:00 23:00 Intake Total 500 ml 1000 ml Balance 500 ml 1000 ml Intake IV Total 500 ml 1000 ml # Voids 1 Result Diagram: 10/16/16 1820 10/16/162200 Imaging Last Impressions Abdomen/Pelvis CT 10/16/161813 Signed Impressions: Service Date/Time: Sunday, October 16, 2016 20:43 - CONCLUSION: 1. Mild fat stranding around the pancreas most characteristic of mild pancreatitis. Previous cholecystectomy without ductal dilatation. 2. Numerous nonobstructing renal calculi. 3. Mild fatty liver. Leodan Lee MD Objective Remarks GENERAL: Well-nourished, well-developed pleasant middle aged female patient in [facility]. SKIN: Warm and dry. No rash. HEENT: Normocephalic. Atraumatic.Pupils equal and round. Mucous membranes pink and moist. CARDIOVASCULAR: Regular rate and rhythm. S1, S2 noted. No murmur appreciated. RESPIRATORY: No accessory muscle use. Clear to auscultation. Breath sounds equal bilaterally. GASTROINTESTINAL: Abdomen soft, non-tender, nondistended. Normoactive bowel sounds x4. MUSCULOSKELETAL: No obvious deformities. Extremities without clubbing, cyanosis , or edema. NEUROLOGICAL: Awake and alert. No obvious cranial nerve deficits. Motor grossly within normal limits. Normal speech. PSYCHIATRIC: Appropriate mood and affect; insight and judgment normal. Medications and IVs Current Medications Medications (Trade) Dose Ordered Sig/Dharmesh Route Start Time Stop Time Status Last Admin (NS Flush) 2 ml UNSCH PRN IV FLUSH 10/16/16 22:30 10/17/16 10:14 (NS Flush) 2 ml BID IV FLUSH 10/17/16 09:00 (Narcan Inj) 0.4 mg UNSCH PRN IV 10/16/16 22:30 (Zofran Inj) 4 mg Q6HR PRN IV PUSH 10/17/16 00:30 10/17/16 00:43 (Morphine Inj) 2 mg Q3H PRN IV PUSH 10/17/16 00:30 10/17/16 10:13 (Lovenox Inj) 40 mg Q24H SQ 10/17/16 06:00 10/17/16 05:17 (D50w (Vial) Inj) 50 ml UNSCH PRN IV 10/17/16 02:00 (Glucagon Inj) 1 mg UNSCH PRN OTHER 10/17/16 02:00 (NovoLOG SUPPLEMENTAL SCALE) 1 ACHS SLIDING SCALE SQ 10/17/16 07:00 (Norvasc) 10 mg DAILY PO 10/17/16 09:00 10/17/16 09:55 (Lipitor) 80 mg HS PO 10/17/16 21:00 (Neurontin) 800 mg BID PO 10/17/16 09:00 10/17/16 09:55 (Lopid) 600 mg BID PO 10/17/16 09:00 10/17/16 09:55 (Antivert) 25 mg BID PO 10/17/16 09:00 10/17/16 09:55 (Protonix) 20 mg DAILY PO 10/17/16 09:00 10/17/16 09:55 Sodium Bicarbonate 50 meq/Dextrose 1,050 ml @ 100 mls/hr [id number] IV 10/17/16 03:15 10/17/16 03:15 A/P Problem List: (1) Pancreatitis ICD Code: K85.90 - Acute pancreatitis without necrosis or infection, unspecified (2) Abdominal pain ICD Code: R10.9 - Unspecified abdominal pain Status: Acute (3) Acidosis, metabolic ICD Code: E87.2 - Acidosis (4) Dehydration ICD Code: E86.0 - Dehydration (5) Type 2 diabetes mellitus ICD Code: E11.9 - Type 2 diabetes mellitus without complications Status: Chronic Assessment and Plan 65 y/o female with a history of pancreatitis presented to ED with severe abdominal and back pain. Acute Pancreatitis: presented with intractable abdominal pain/nausea/vomiting; hx of pancreatitis. - Abdomen/Pelvis CT with mild fat stranding around the pancreas most c/w acute pancreatitis. - Continue supportive treatment with IVF, antiemetics with Zofran prn, pain control with IV morphine prn. - repeat lipase today, monitor CMP Type 2 Diabetes Mellitus - Accu-Cheks before meals and at bedtime with low-dose NovoLog sliding scale coverage - Hypoglycemia protocol - Monitor trends and blood glucose readings and adjust treatments as indicated Dehydration with acidosis - improving with rehydration on repeat labs - repeat labs pending DVT prophylaxis - Lovenox 40 mg subq q24h Discharge Planning Discharge pending further clinical improvement and repeat labs. Possibly later this evening or tomorrow. Deysi Zapata PA-C Oct 17, 2016 1:39 pm
--- NOTE | 2016-10-17 13:43 | EKG ---
Date Performed: 10/16/2016 Time Performed: 19:25:54 PTAGE: 65 years EKG: Sinus rhythm WITH FIRST DEGREE AV BLOCK MARKED LEFT AXIS DEVIATION RIGHT BUNDLE BRANCH BLOCK ABNORMAL ECG NO PREVIOUS TRACING DOCTOR: rAon Peacock Interpretating Date/Time 10/17/2016 13:39:08
[2016-10-17 17:58] LABS: ALKALINE PHOSPHATASE 85 U/L (45-117); ANION GAP 7 MEQ/L (5-15); BICARBONATE 29.3 MEQ/L (21.0-32.0); BLOOD UREA NITROGEN 5 MG/DL (7-18); CHLORIDE 96 MEQ/L (98-107); GLOMERULAR FILTRATION RATE 125 ML/MIN (>89); SODIUM (NA) 132 MEQ/L (136-145)
[2016-10-17 18:10] LABS: ALT (GPT) 45 U/L (10-53); AST (GOT) 23 U/L (15-37); POTASSIUM 3.4 MEQ/L (3.5-5.1)
[2016-10-17] MEDS ORDERED: ATORVASTATIN 80 MG TAB PO SCH (21:00)
[2016-10-17 21:28] LABS: AUTOMATED NEUTROPHIL # 4.6 TH/MM3 (1.8-7.7); BASOPHIL % 0.8 % (0.0-2.0); EOSINOPHIL % 0.6 % (0.0-4.0); HEMATOCRIT 34.8 % (35.0-46.0); HEMO FLAGS DIFF FINAL; LYMPH % 18.8 % (9.0-44.0); LYMPHOCYTE # 1.1 TH/MM3 (1.0-4.8); MEAN CELL VOLUME 79.1 FL (80.0-100.0); MEAN CORPUSCULAR HEMOGLOBIN 27.9 PG (27.0-34.0); MEAN CORPUSCULAR HGB CONC 35.3 % (32.0-36.0); MONO % 4.2 % (0.0-8.0); NEUT % 75.6 % (16.0-70.0); PLATELET COUNT 159 TH/MM3 (150-450); RED CELL DISTRIBUTION WIDTH 15.6 % (11.6-17.2); WHITE BLOOD COUNT 6.1 TH/MM3 (4.0-11.0)
[2016-10-18] VITALS (7 sets, daily range): BP systolic 100–124; BP diastolic 57–68; PULSE 86–93; RESP 17–18; TEMP 98.1–98.7; O2SAT 91–97
[2016-10-18] MEDS: SODIUM BICARBONATE 8.4% INJ 50 MEQ in DEXTROSE 5% IN WATE 1000ML INJ 1,000 ML IV SCH ×4 (05:00→10:45)
[2016-10-18] MEDS: ENOXAPARIN SODIUM 40 MG/0.4 ML SYRINGE SQ SCH (06:14)
[2016-10-18] MEDS: INSULIN ASPART SUPPLEMENTAL SCALE SQ SCH ×3 (06:20→16:00)
[2016-10-18 08:23] LABS: AUTOMATED NEUTROPHIL # 3.4 TH/MM3 (1.8-7.7); BASOPHIL % 0.4 % (0.0-2.0); EOSINOPHIL # 0.1 TH/MM3 (0-0.4); EOSINOPHIL % 1.1 % (0.0-4.0); HEMATOCRIT 34.8 % (35.0-46.0); HEMO FLAGS DIFF FINAL; LYMPH % 20.6 % (9.0-44.0); MEAN CELL VOLUME 79.7 FL (80.0-100.0); MEAN CORPUSCULAR HEMOGLOBIN 27.3 PG (27.0-34.0); MEAN CORPUSCULAR HGB CONC 34.3 % (32.0-36.0); MONO % 4.7 % (0.0-8.0); NEUT % 73.2 % (16.0-70.0); PLATELET COUNT 149 TH/MM3 (150-450); RED BLOOD COUNT 4.36 MIL/MM3 (4.00-5.30); RED CELL DISTRIBUTION WIDTH 15.7 % (11.6-17.2); WHITE BLOOD COUNT 4.7 TH/MM3 (4.0-11.0)
[2016-10-18 08:47] LABS: ALT (GPT) 35 U/L (10-53); ANION GAP 5 MEQ/L (5-15); AST (GOT) 19 U/L (15-37); BICARBONATE 32.1 MEQ/L (21.0-32.0); BLOOD UREA NITROGEN 6 MG/DL (7-18); CHLORIDE 97 MEQ/L (98-107); GLOMERULAR FILTRATION RATE 92 ML/MIN (>89); POTASSIUM 3.4 MEQ/L (3.5-5.1); SODIUM (NA) 134 MEQ/L (136-145)
[2016-10-18 08:51] LABS: ALKALINE PHOSPHATASE 84 U/L (45-117); HDL CHOLESTEROL 43.5 MG/DL (40.0-60.0); TOTAL BILIRUBIN ADULT 0.9 MG/DL (0.2-1.0)
[2016-10-18] MEDS: SODIUM CHLORIDE 0.9% FLUSH 10 ML FLUSH IV FLUSH SCH (09:00)
[2016-10-18] MEDS: GEMFIBROZIL 600 MG TAB PO SCH (09:34)
[2016-10-18] MEDS: PANTOPRAZOLE SOD 20 MG DELAYED RELEASE TAB PO SCH (09:34)
[2016-10-18] MEDS: GABAPENTIN 400 MG CAP PO SCH (09:34)
[2016-10-18] MEDS: MECLIZINE HCL 25 MG TAB PO SCH (09:34)
--- NOTE | 2016-10-18 10:34 | HHI.PR ---
Subjective Remarks Follow up for abdominal pain, pancreatitis. The patient reports feeling much better today. Denies any abdominal pain, nausea, or vomiting. She is tolerating clear liquid tray and says she is very hungry, wants more food. Denies fevers/ chills. Denies any other medical complaints at this time. Objective Vitals Vital Signs Date Time Temp Pulse Resp B/P (MAP) Pulse Ox O2 Delivery O2 Flow Rate FiO2 10/18/16 08:41 98.3 87 18 107/62 (77) 95 10/18/16 08:10 87 10/18/16 03:16 98.1 90 17 100/57 (71) 93 10/18/16 01:27 98.7 90 17 124/68 (86) 97 10/17/16 21:00 93 10/17/16 20:06 98.8 99 18 120/69 (86) 97 10/17/16 16:47 99.2 97 18 109/65 (80) 96 10/17/16 16:10 97 10/17/16 12:05 98 10/17/16 11:47 98.7 98 18 122/67 (85) 96 I/O 10/17/16 10/17/16 10/17/16 10/18/16 10/18/16 10/18/16 07:00 15:00 23:00 07:00 15:00 23:00 Intake Total 1000 ml 1000 ml Balance 1000 ml 1000 ml Intake IV Total 1000 ml 1000 ml # Voids 1 Result Diagram: 10/18/16 0729 10/18/16 0729 Imaging Last Impressions Abdomen/Pelvis CT 10/16/161813 Signed Impressions: Service Date/Time: Sunday, October 16, 2016 20:43 - CONCLUSION: 1. Mild fat stranding around the pancreas most characteristic of mild pancreatitis. Previous cholecystectomy without ductal dilatation. 2. Numerous nonobstructing renal calculi. 3. Mild fatty liver. Leodan Lee MD Objective Remarks GENERAL: Well-nourished, well-developed pleasant middle aged female patient in [facility]. SKIN: Warm and dry. No rash. HEENT: Normocephalic. Atraumatic.Pupils equal and round. Mucous membranes pink and moist. CARDIOVASCULAR: Regular rate and rhythm. S1, S2 noted. No murmur appreciated. RESPIRATORY: No accessory muscle use. Clear to auscultation. Breath sounds equal bilaterally. GASTROINTESTINAL: Abdomen soft, non-tender, nondistended. Normoactive bowel sounds x4. MUSCULOSKELETAL: No obvious deformities. Extremities without clubbing, cyanosis , or edema. NEUROLOGICAL: Awake and alert. No obvious cranial nerve deficits. Motor grossly within normal limits. Normal speech. PSYCHIATRIC: Appropriate mood and affect; insight and judgment normal. Medications and IVs Last Impressions Abdomen/Pelvis CT 10/16/16 1814 Signed Impressions: Service Date/Time: Sunday, October 16, 2016 20:43 - CONCLUSION: 1. Mild fat stranding around the pancreas most characteristic of mild pancreatitis. Previous cholecystectomy without ductal dilatation. 2. Numerous nonobstructing renal calculi. 3. Mild fatty liver. Leodan Lee MD A/P Problem List: (1) Pancreatitis ICD Code: K85.90 - Acute pancreatitis without necrosis or infection, unspecified (2) Abdominal pain ICD Code: R10.9 - Unspecified abdominal pain Status: Acute (3) Acidosis, metabolic ICD Code: E87.2 - Acidosis (4) Dehydration ICD Code: E86.0 - Dehydration (5) Type 2 diabetes mellitus ICD Code: E11.9 - Type 2 diabetes mellitus without complications Status: Chronic Assessment and Plan 65 y/o female with a history of pancreatitis presented to ED with severe abdominal and back pain. Acute Pancreatitis: presented with intractable abdominal pain/nausea/vomiting; hx of pancreatitis. - Abdomen/Pelvis CT with mild fat stranding around the pancreas most c/w acute pancreatitis. - Continue supportive treatment with IVF, antiemetics with Zofran prn, pain control with IV morphine prn. - lipase trended 170 --> 492 --> 169 , LFTs wnl - patient's symptoms much improved, advanced to soft diet, likely discharge later today Type 2 Diabetes Mellitus - Accu-Cheks before meals and at bedtime with low-dose NovoLog sliding scale coverage - Hypoglycemia protocol - Monitor trends and blood glucose readings and adjust treatments as indicated Dehydration with acidosis - improving with rehydration on repeat labs - repeat labs show improvement, resolved. Hypertriglyceridemia: triglycerides 713, patient aware of this, says it sometimes is over 1000 - continue home meds and outpatient f/up DVT prophylaxis - Lovenox 40 mg subq q24h Discharge Planning Plan to discharge this afternoon if still tolerating oral intake. 1600hrs: Discussed with patient and her daughter. Patient still doing well, tolerating oral intake. Discussed diet recommendations. Discharge patient to home Condition on discharge: Improved Regular Diet as tolerated Ad Samara activity Rx written: Follow-up with primary care physician and gastroenterology within 1 week Deysi Zapata PA-C Oct 18, 2016 10:34
--- NOTE | 2016-10-18 10:35 | HHI.DCPOC ---
Discharge Care Plan Diagnosis: (1) Pancreatitis (2) Dehydration (3) Type 2 diabetes mellitus (4) Abdominal pain Goals to Promote Your Health * To prevent worsening of your condition and complications * To maintain your health at the optimal level Directions to Meet Your Goals Take your medications as prescribed Follow your dietary instruction Follow activity as directed Keep your appointments as scheduled Take your immunizations and boosters as scheduled If your symptoms worsen call your PCP, if no PCP go to Urgent Care Center or Emergency Room Smoking is Dangerous to Your Health. Avoid second hand smoke Call the 24-hour hour crisis hotline for domestic abuse at Deysi Zapata PA-C Oct 18, 2016 10:35 am
== END 2016-10-18 16:28 | disposition home or self-care (01) ==
LOC: NEPE 17:40 → NEDA 22:08 → INTOOBSV 22:08 → NEPGCP 10-17 00:25
PROVIDERS: ADMIT Hospitalist; ATTEND Hospitalist
DX: K86.1 Other chronic pancreatitis (principal); E86.0 Dehydration; E87.2 Acidosis; E11.9 Type 2 diabetes mellitus without complications; E78.00 Pure hypercholesterolemia, unspecified; Z79.84 Long term (current) use of oral hypoglycemic drugs
CPT/HCPCS: 74177; 80053; 80061; 81001; 82010; 82805; 82948; 83605; 83690; 85025; 93005; 96361; 96365; 96366; 96372; 96375; 96376; 99285; G0378; J1170; J1650; J1815; J2270; J2405; J7030; J7040; J7070; Q9967; 80048